=== PATIENT | female | born 1955 | race Asian ===

== ENCOUNTER 2022-07-14 12:35 | Outpatient (CLI) | payer OTHER, SELFPAY ==
[2022-07-14 18:25] LABS: Basophils Percent Auto 0.5 % (0.2-1.2); Eosinophils Absolute Auto 0.2 K/mm3 (0-0.3); Eosinophils Percent Auto 2.3 % (0-4.4); Hematocrit 39.8 % (37.0-47.0); Hemoglobin 12.9 g/dL (12.0-15.0); Immature Granulocyte Absolute 0.02 K/mm3 (0.00-0.031); Immature Granulocyte Percent A 0.2 % (0-0.5); Lymphocytes Absolute Auto 2.87 K/mm3 (0.9-3.2); Lymphocytes Percent Auto 32.9 % (18.3-44.2); Mean Corpuscular HGB Conc 32.4 g/dl (32-36); Mean Corpuscular Volume 86.3 fl (80-100); Mean Platelet Volume 9.7 fl (7.4-10.4); Monocytes Absolute Auto 0.4 K/mm3 (0.1-0.6); Monocytes Percent Auto 4.4 % (2.6-8.5); Neutrophils Absolute Auto 5.2 K/mm3 (1.3-6.7); Neutrophils Percent Auto 59.7 % (45.5-73.1); Platelet Count Result 210 k/mm3 (150-375); Red Blood Count 4.61 M/mm3 (4.2-5.4); Red Cell Distribution Width 16.7 % (11.5-14.5); White Blood Count 8.7 K/mm3 (4.5-10.0)
[2022-07-14 18:42] LABS: Alanine Aminotransferase 30 U/L (6-35); Albumin Level 4.4 g/dL (3.5-5.1); Alkaline Phosphatase 74 U/L (38-126); Anion Gap 4 mmol/L (8-16); Aspartate Amino Transferase 40 U/L (14-36); Bilirubin,Total 0.8 mg/dL (0.2-1.3); Blood Urea Nitrogen 15 mg/dL (7-17); Calcium 9.2 mg/dL (8.4-10.2); Carbon Dioxide 34 mmol/L (22-30); Chloride 102 mmol/L (98-107); Cholesterol 151 mg/dL (0-200); Estimated Glomerular Filt Rate > 60; Glucose 102 mg/dL (65-110); HDL Direct 61 mg/dL; Potassium 3.6 mmol/L (3.4-5.0); Sodium 140 mmol/L (137-145); Triglycerides 151 mg/dL (<150)
[2022-07-14 19:12] LABS: LDL Cholesterol Direct 67 mg/dL
[2022-07-14 19:28] LABS: Vitamin B12 > 1000.0 pg/mL (239-931)
[2022-07-14 20:22] LABS: Vitamin D 25 Hydroxy 47.2 ng/mL
== END 2022-07-14 12:36 | disposition home or self-care (01) ==
LOC: ANHGOSHLAB 12:37
PROVIDERS: PCP Family Medicine; Visit Provider Family Medicine
DX: E55.9 Vitamin D deficiency, unspecified (principal); I10 Essential (primary) hypertension; E53.8 Deficiency of other specified B group vitamins; E78.5 Hyperlipidemia, unspecified
CPT/HCPCS: 36415; 80053; 80061; 82306; 82607; 84443; 85025

== ENCOUNTER 2022-07-22 12:11 | Outpatient (CLI) | payer OTHER, SELFPAY ==
--- NOTE | ~2022-07-22 | XR_ITS ---
EXAMINATION: XR sinus min 3V DATE: 07/22/2022 12:45 INDICATION: Headaches. Cough. TECHNIQUE: 5 views of the paranasal sinuses were obtained. COMPARISON: None. FINDINGS: There is mild leftward deviation of the nasal septum. The paranasal sinuses are clear. IMPRESSION: 1. No etiology for the patient's symptoms. Reviewed, dictated and finalized at location L.
--- NOTE | ~2022-07-22 | XR_ITS ---
Clinical Indication: Chronic cough PA and lateral views of the chest: Comparison: None Findings: The lungs are clear, without evidence of focal consolidation or pleural effusion. Cardiome diastinal silhouette is within normal limits. Bones and soft tissues are unremarkable. Impression: Normal chest. Reviewed, dictated and finalized at location . Impression: Normal chest.
== END 2022-07-22 12:12 | disposition home or self-care (01) ==
PROVIDERS: PCP Family Medicine; Visit Provider Family Medicine
DX: R05.3 Chronic cough (principal)
CPT/HCPCS: 70220; 71046

== ENCOUNTER 2022-11-19 12:42 | Outpatient (CLI) | payer OTHER, SELFPAY ==
--- NOTE | ~2022-11-19 | XR_ITS ---
EXAMINATION:XR cervical spine 4-5V DATE: 11/19/2022 13:06 INDICATION: Neck pain TECHNIQUE: AP, lateral, lateral swimmers and odontoid views of the cervical spine are provided. COMPARISON: None FINDINGS: There are 3 mm of retrolisthesis of C5 on C6. There are 2 mm of retrolisthesis of C6 on C7. The odontoid process is intact. No fracture is identified. There is moderate loss of intervertebral disc space height at C5-6 and C6-7. There is mild loss of intervertebral disc space height throughout the remainder of the cervical spine. The vertebral body heights are maintained. There is moderate mu ltilevel facet and uncovertebral joint osteoarthritis. Prevertebral soft tissues are normal. IMPRESSION: 1. Moderate cervical spondylosis without acute findings. Reviewed, dictated and finalized at location F.
--- NOTE | ~2022-11-19 | XR_ITS ---
EXAMINATION: XR lumbar spine 2-3V DATE: 11/19/2022 13:06 INDICATION: Low back pain TECHNIQUE: Anteroposterior and lateral views of the lumbar spine, and cone-down lateral view of the l umbosacral junction were obtained. COMPARISON: None. FINDINGS: Bone alignment is normal. There is no fracture. The vertebral body heights are maintained. There is mild loss of intervertebral disc space height at L1-2 and L2-3. There is mild facet joint os teoarthritis of the lower lumbar spine. IMPRESSION: 1. Mild lumbar spondylosis without acute findings. Reviewed, dictated and finalized at location F.
== END 2022-11-19 12:43 | disposition home or self-care (01) ==
LOC: ANHIMG 12:46
PROVIDERS: PCP Family Medicine; Visit Provider Family Medicine
DX: M47.896 Other spondylosis, lumbar region (principal); M47.892 Other spondylosis, cervical region
CPT/HCPCS: 72050; 72100

== ENCOUNTER 2022-11-25 13:35 | Outpatient (RCR) | payer OTHER, SELFPAY ==
--- NOTE | 2022-11-25 17:02 | PTOPEVDC ---
Assessment and note entered by Killian Espinoza, PT, DPT Thank you for referring Gail Vega to [facility].? An evaluation has been completed. No further treatment is needed. Evaluation Information Assessment Status Evaluation Diagnosis neck and low back pain Onset years Subjective Information Pt reports she has neck and shoulder pain, that goes up the back of her head and into both shoulders. She reports a chronic pain without a GREGORY. She states feeling tension makes her pain worse, she was given some pain reliever patches and these help. Pt states house work increases her pain. Pt states she cannot sleep through the night that she is up multiple times in the night. She states she has pain that fluctuates, she will not have it for weeks at a time then it will start again. Reported Pain Level Pain Score 0: Self Report Assessment PT Clinical Summary Gail presents to therapy today for her initial evaluation with a diagnosis of neck pain. Today she also reports jack shoulder, jack hip, and low back pain. The neck was the primary focus this date. She demonstrates good cervical active ROM with limitations in lateral flexion jack, she demonstrates a forward and rounded posture in sitting, and reports jack cervical suboccipital tenderness. Pt was instructed in an HEP. Upon scheduling, pt informed therapy staff that she lives in [place] and that she has only been here for a few weeks visiting her son. Pt states she returns to [place] in less than a week. Pt educated that a new evaluation will have to be done upon her returning home. Pt will not be picked up by therapy at this time. Plan of Care PT Services Indicated No Treatment Frequency and evaluate and discharge Duration
== END 2022-11-26 10:07 | disposition home or self-care (01) ==
LOC: ANHGOSHPT 13:35
PROVIDERS: PCP Family Medicine; Visit Provider Family Medicine
DX: M54.2 Cervicalgia (principal); M54.9 Dorsalgia, unspecified; G89.29 Other chronic pain
CPT/HCPCS: 97110; 97161

== ENCOUNTER 2025-01-26 14:47 | Outpatient (CLI) | payer MEDICARE, MEDICAID, SELFPAY ==
[2025-01-26 18:25] LABS: Hematocrit 40.4 % (37.0-47.0); Hemoglobin 13.3 g/dL (12.0-15.0); Immature Granulocyte Percent A 0.2 % (0-0.5); Lymphocytes Absolute Auto 3.56 K/mm3 (0.9-3.2); Mean Corpuscular HGB Conc 32.9 g/dl (32-36); Mean Corpuscular Hemoglobin 28.1 pg (26-34); Mean Corpuscular Volume 85.4 fl (80-100); Nucleated Red Blood Cells Absolute Auto 0.000 K/mm3 (0.0-0.012); Nucleated Red Blood Cells Perc 0.0 % (0.0-0.2); Platelet Count Result 247 k/mm3 (150-375); Red Blood Count 4.73 M/mm3 (4.2-5.4); White Blood Count 10.8 K/mm3 (4.5-10.0)
[2025-01-26 18:31] LABS: Alanine Aminotransferase 19 U/L (6-35); Albumin Level 4.6 g/dL (3.5-5.1); Alkaline Phosphatase 83 U/L (38-126); Anion Gap 6 mmol/L (4-12); Aspartate Amino Transferase 29 U/L (14-36); Bilirubin,Total 0.8 mg/dL (0.2-1.3); Blood Urea Nitrogen 11 mg/dL (7-17); Calcium 10.3 mg/dL (8.4-10.2); Carbon Dioxide 31 mmol/L (22-30); Chloride 103 mmol/L (98-107); Cholesterol 147 mg/dL (0-200); Estimated Glomerular Filt Rate > 60; Glucose 105 mg/dL (65-110); HDL Direct 65 mg/dL; Potassium 3.4 mmol/L (3.4-5.0); Sodium 140 mmol/L (137-145); Total Protein 8.0 g/dL (6.3-8.2); Triglycerides 83 mg/dL (<150)
[2025-01-26 18:53] LABS: Hemoglobin A1C 5.2 % (<5.7)
[2025-01-26 18:56] LABS: Thyroid Stimulating Hormone Reflex 1.230 uIU/mL (0.465-4.68)
[2025-01-26 19:31] LABS: Vitamin B12 > 1000.0 pg/mL (239-931)
== END 2025-01-26 14:48 | disposition home or self-care (01) ==
LOC: ANHGOSHLAB 14:48
PROVIDERS: PCP Family Medicine; Visit Provider Family Medicine
DX: E78.5 Hyperlipidemia, unspecified (principal); I10 Essential (primary) hypertension; E53.8 Deficiency of other specified B group vitamins; Z00.00 Encounter for general adult medical examination without abnormal findings; R73.9 Hyperglycemia, unspecified; E55.9 Vitamin D deficiency, unspecified
CPT/HCPCS: 36415; 80053; 80061; 82306; 82607; 83036; 84443; 85025